=== PATIENT | male | born 1960 | race Caucasian/White ===

== ENCOUNTER 2024-09-28 18:21 | Emergency (ER) | payer MEDICARE, SELFPAY ==
--- NOTE | ~2024-09-28 | XR_ITS ---
EXAMINATION: XR CHEST CLINICAL INFORMATION: Fall. Left-sided rib pain. COMPARISON: None available. TECHNIQUE: Frontal portable view of the chest was obtained. 7:42 PM FINDINGS: No significant abnormality is noted involving the heart, lungs, mediastinum, bony thorax or soft tissues. XR/XR chest 1V IMPRESSION: Unremarkable examination. Electronically signed by: Gabriel Chacon MD 09/28/2024 09:02 PM EDT RP
--- NOTE | ~2024-09-28 | CT_ITS ---
EXAMINATION: CT CHEST WITH CONTRAST CLINICAL INFORMATION: Fall. Left-sided rib pain. COMPARISON: Chest x-ray September 28, 2024 TECHNIQUE: Multidetector volumetric CT imaging of the chest was obtained after the administration of 65 mL of Omnipaque 350 intravenous contrast without immediate adverse reactions. Axial MIP volume rendering provided. Sagittal and coronal reformatted images were obtained. This CT examination was performed using dose optimization techniques as appropriate, variously including the following: *Automated exposure control *Adjustment of mA and/or kV according to patient size (this includes techniques or standardized protocols for targeted exams where dose is matched to indication/reason for exam; i.e. extremities or head) *Use of iterative reconstruction technique DLP: 341 mGy-cm FINDINGS: LUNGS: The lungs are clear with no evidence of inflammation or nodules. MEDIASTINUM: No mediastinal mass or significant lymphadenopathy. Heart size is normal. No pericardial effusion. PLEURA: There is no pleural effusion. No pleural mass or thickening. AXILLA: No lymphadenopathy. UPPER ABDOMEN: Unremarkable OSSEOUS STRUCTURES: Nondisplaced fracture of the anterior left sixth rib. CT/CT chest w IV con IMPRESSION: Nondisplaced fracture of the anterior left sixth rib. Fleischner guidelines were followed. Electronically signed by: Gabriel Chacon MD 09/28/2024 09:30 PM EDT
[2024-09-28 18:28] VITALS: BP 115/73; PULSE 70; O2SAT 90
[2024-09-28 18:33] VITALS: BP 140/47; PULSE 63; RESP 18; TEMP 36.5; O2SAT 98; BMI 33.8
[2024-09-28 19:04] VITALS: BP 140/47; PULSE 57; RESP 20; TEMP 36.4; O2SAT 99
[2024-09-28 19:07] VITALS: BP 132/77
[2024-09-28 19:49] LABS: Hematocrit 44.8 % (42.0-52.0); Hemoglobin 15.2 g/dl (14.0-18.0); Mean Corpuscular HGB Conc 33.9 g/dl (31.0-36.0); Mean Corpuscular Hemoglobin 29.3 pg (27.0-33.0); Mean Corpuscular Volume 86.5 fL (80.0-98.0); PLT CLUMP 1; Red Blood Count 5.18 X10*6/uL (4.60-5.80); Red Cell Distribution Width 13.6 % (11.0-16.0)
[2024-09-28 19:50] LABS: Alanine Aminotransferase 40 U/L (0-40); Albumin Level 4.6 g/dL (3.5-5.0); Alkaline Phosphatase 73 U/L (39-117); Anion Gap 14 (12-20); Aspartate Amino Transferase 40 U/L (5-37); Bilirubin Total 0.9 mg/dL (0.0-1.0); Blood Urea Nitrogen 22 mg/dL (9-16); Calcium 9.8 mg/dL (8.4-10.2); Carbon Dioxide 21 mmol/L (22-29); Chloride 108 mmol/L (96-108); Estimated Glomerular Filt Rate > 60; Glucose Random 101 mg/dL (60-115); Potassium 5.3 mmol/L (3.3-5.1); Sodium 138 mmol/L (135-145); Total Protein 7.6 g/dL (6.5-8.0)
[2024-09-28 20:02] LABS: SLIDE REVIEW MANUAL DIFF
[2024-09-28 20:06] LABS: Band Neutrophils Percent 2 % (3-5); Eosinophils Percent Manual 4 % (0-4); Lymphocytes Percent Manual 19 % (20-40); Monocytes Percent Manual 4 % (2-11); Neutrophils Percent Manual 71 % (45-73)
[2024-09-28 20:07] LABS: Platelet Estimate NORMAL (NORMAL); RBC Morphology NORMAL
[2024-09-28 20:08] LABS: Eosinophils Absolute Manual 0.3 X10*3/uL (0.0-0.4); Lymphocytes Absolute Manual 1.4 X10*3/uL (1.2-4.9); Monocytes Absolute Manual 0.3 X10*3/uL (0.1-1.2); Neutrophils Absolute Manual 5.4 X10*3/uL (2.0-8.3); White Blood Count 7.4 X10*3/uL (4.8-10.8)
[2024-09-28] MEDS: ondansetron HCL 4 MG/2 ML VIAL IVPUSH (20:11)
[2024-09-28] MEDS: HYDROmorphone HCl 2 MG/ML VIAL IVPUSH (20:11)
[2024-09-28 20:15] LABS: Platelet Morphology Comment NORMAL
--- NOTE | 2024-09-28 20:18 | ED.FALL ---
HPI - Fall General Chief Complaint: Fall Stated Complaint: s/p fall, L sided lower rib pain, hx lung collapse Time Seen by Provider: 09/28/24 19:44 Source: patient Mode of arrival: ambulatory Limitations: no limitations History of Present Illness ED Provider: mauricio LOVELL Narrative: Apparently patient was running with his granddaughter on soccer field tripped on a hole and fell hitting had left side of the body to the ground complaining of pain in the left anterior rib patient does have history of seizures but there was no seizure at this time pain increases on palpation and take in deep breaths no significant head injury or loss of consciousness Related Data Previous Rx's ?Medication ?Instructions ?Recorded ibuprofen 600 mg tablet 600 mg PO Q6H PRN fever or pain 09/28/24 #30 tabs oxycodone 5 mg tablet 5 mg PO Q6H PRN pain #20 tabs 09/28/24 Allergies Allergy/AdvReac Type Severity Reaction Status Date / Time No Known Allergies Allergy Verified 09/28/24 18:35 Review of Systems Review of Systems: Yes all other systems are reviewed and are negative FOR[facility]LY [facility], [facility] Social History Social History Smoked in Last 30 Days: No Use of substances other than those prescribed or required for medical reasons: No Advance Directives: No Advance Directives Information Provided: No Do you have a plan to hurt others: No Plan Physical Exam Vital Signs: Vital Signs: Last Vital Signs Temp 98 F 09/28/24 22:34 Pulse 64 09/28/24 22:34 Resp 16 09/28/24 22:34 BP 150/90 H 09/28/24 22:34 Pulse Ox 98 09/28/24 22:34 O2 Del Method Room Air 09/28/24 22:34 BMI result Body Mass Index 33.8 Appearance: Alert. Oriented X3. No acute distress. Eyes: PERRLA, No Nystagmus HEENT: Pharynx normal. Oral Mucosa moist atraumatic normocephalic Neck: Normal inspection. Neck supple. CVS: Normal heart rate and rhythm. Pulses normal. Respiratory: No respiratory distress. Tenderness at left anterior lower rib Equal air entry bilateral, no wheezing/rales/rhonchi Abdomen: Soft and nontender. Bowel sounds are present, no mass palpable, no CVA tenderness Skin: Skin warm and dry. Normal skin color. Normal skin turgor. Extremities: No lower extremity edema. No calf tenderness Neuro: Oriented X 3. No motor deficit. No sensory deficit.No cerebellar signs , cranial nerves II-XII intact Medications Administered Discontinued Medications Generic Name Dose Route Start Last Admin Trade Name Freq PRN Reason Stop Dose Admin Hydromorphone HCl 2 mg 09/28/24 19:59 09/28/24 20:11 Hydromorphone Hcl 2 Mg/Ml Vial IVPUSH 09/28/24 20:00 2 mg ONCE ONE Administration Protocol Iohexol 100 ml 09/28/24 20:35 09/28/24 20:36 Iohexol 350 Mg/Ml 100 Ml Infus..Btl IV 09/28/24 20:36 65 ml ONCE ONE Administration Ondansetron HCl 4 mg 09/28/24 19:59 09/28/24 20:11 Ondansetron Hcl 4 Mg/2 Ml Vial IVPUSH 09/28/24 20:00 4 mg ONCE ONE Administration Medical Decision Making Medical Decision Making [facility] Narrative: Patient with single left 6 rib fractures after fall without significant displacement will give pain medication advised spirometry Lab Data [facility] Lab Attestation statement: I reviewed the patient's lab results. 09/28/24 19:32 09/28/24 19:32 Labs: Lab Results 09/28/24 Range/Units 19:32 WBC 7.4 (4.8-10.8) X10*3/uL RBC 5.18 (4.60-5.80) X10*6/uL Hgb 15.2 (14.0-18.0) g/dl Hct 44.8 (42.0-52.0) % MCV 86.5 (80.0-98.0) fL MCH 29.3 (27.0-33.0) pg MCHC 33.9 (31.0-36.0) g/dl RDW 13.6 (11.0-16.0) % Plt Count TNP MPV 11.0 (9.4-12.4) fL Immature Gran % (Auto) Cancelled Neut % (Auto) Cancelled Lymph % (Auto) Cancelled [place] % (Auto) Cancelled Eos % (Auto) Cancelled Baso % (Auto) Cancelled Lymph # (Auto) Cancelled [place] # (Auto) Cancelled Eos # (Auto) Cancelled Baso # (Auto) Cancelled Abs Immat Gran (auto) Cancelled Absolute Neuts (auto) Cancelled Absolute Nucleated RBC 0.000 (0.0-0.012) X10*3/uL Nucleated RBC % (auto) 0.0 (0.0-0.2) /100WBC Neutrophils % (Manual) 71 (45-73) % Band Neutrophils % 2 L (3-5) % Lymphocytes % (Manual) 19 L (20-40) % Monocytes % (Manual) 4 (2-11) % Eosinophils % (Manual) 4 (0-4) % Abs Neuts (Manual) 5.4 (2.0-8.3) X10*3/uL Lymphocytes # (Manual) 1.4 (1.2-4.9) X10*3/uL Monocytes # (Manual) 0.3 (0.1-1.2) X10*3/uL Eosinophils # (Manual) 0.3 (0.0-0.4) X10*3/uL Platelet Estimate NORMAL (NORMAL) Plt Morphology Comment NORMAL RBC Morphology NORMAL Smear Tech's Comments MANUAL DIFF Sodium 138 (135-145) mmol/L Potassium 5.3 H (3.3-5.1) mmol/L Chloride 108 (96-108) mmol/L Carbon Dioxide 21 L (22-29) mmol/L Anion Gap 14 (12-20) BUN 22 H (9-16) mg/dL Creatinine 1.14 (0.5-1.4) mg/dL Estim Creat Clear Calc 86.0 Estimated GFR > 60 Random Glucose 101 (60-115) mg/dL Calcium 9.8 (8.4-10.2) mg/dL Total Bilirubin 0.9 (0.0-1.0) mg/dL AST 40 H (5-37) U/L ALT 40 (0-40) U/L Alkaline Phosphatase 73 (39-117) U/L Total Protein 7.6 (6.5-8.0) g/dL Albumin 4.6 (3.5-5.0) g/dL Radiology Impression Discussion of test interpretation with radiology: I have reviewed the radiologist's reading. Radiologist Impression: Close Chest CT (Signed) Arose,Gabriel - 09/28/24 Chest X-Ray (Signed) Arose,Gabriel - 09/28/24 Launch?Image [address] [address] [address] Scan Report Signed Patient: Austin Ramirez MR#: [id number] : 1960 Acct:[id number] Age/Sex: 64 / M ADM Date: 09/28/24 Loc: HO.ED Attending Dr: Ordering Physician: Jayden Azul MD Date of Service: 09/28/24 Procedure(s): CT chest w IV con Accession Number(s): [id number] cc: Physician,Unknown ; Jayden Azul MD~ EXAMINATION: CT CHEST WITH CONTRAST CLINICAL INFORMATION: Fall. Left-sided rib pain. COMPARISON: Chest x-ray September 28, 2024 TECHNIQUE: Multidetector volumetric CT imaging of the chest was obtained after the administration of 65 mL of Omnipaque 350 intravenous contrast without immediate adverse reactions. Axial MIP volume rendering provided. Sagittal and coronal reformatted images were obtained. This CT examination was performed using dose optimization techniques as appropriate, variously including the following: *Automated exposure control *Adjustment of mA and/or kV according to patient size (this includes techniques or standardized protocols for targeted exams where dose is matched to indication/reason for exam; i.e. extremities or head) *Use of iterative reconstruction technique DLP: 341 mGy-cm FINDINGS: LUNGS: The lungs are clear with no evidence of inflammation or nodules. MEDIASTINUM: No mediastinal mass or significant lymphadenopathy. Heart size is normal. No pericardial effusion. PLEURA: There is no pleural effusion. No pleural mass or thickening. AXILLA: No lymphadenopathy. UPPER ABDOMEN: Unremarkable OSSEOUS STRUCTURES: Nondisplaced fracture of the anterior left sixth rib. CT/CT chest w IV con IMPRESSION: Nondisplaced fracture of the anterior left sixth rib. Fleischner guidelines were followed. Electronically signed by: Gabriel Chacon MD 09/28/2024 09:30 PM EDT Discharge Plan Discharge Clinical Impression: Closed rib fracture Patient Disposition: Home, Self-Care Instructions: Rib Fracture (ED) Additional Instructions: You have fracture of the left 6th rib in front Take Motrin for pain as needed Oxycodone for severe pain Report to the ER if acute shortness of breath/ worsening of pain Prescriptions: New ibuprofen 600 mg tablet 600 mg PO Q6H PRN (Reason: fever or pain) Qty: 30 0RF oxycodone 5 mg tablet 5 mg PO Q6H PRN (Reason: pain) Qty: 20 0RF Rx Instructions: Partial Fill upon patient request. Interventions: ED Discharge Assessment Last Done: 09/28/24 22:34 Discharge Date/Time: 09/28/24 22:35 Print Language: Ukrainian
[2024-09-28] MEDS: iohexoL 350 MG/ML 100 ML INFUS..BTL IV (20:36)
[2024-09-28 22:34] VITALS: BP 150/90; PULSE 64; RESP 16; TEMP 36.6; O2SAT 98
== END 2024-09-28 22:35 | disposition home or self-care (01) ==
PROVIDERS: Emergency Provider Internal Medicine
DX: S22.32XA Fracture of one rib, left side, initial encounter for closed fracture (principal); W01.0XXA Fall on same level from slipping, tripping and stumbling without subsequent striking against object, initial encounter; Y93.66 Activity, soccer; Y92.322 Soccer field as the place of occurrence of the external cause; Y99.9 Unspecified external cause status
CPT/HCPCS: 36415; 71045; 71260; 80053; 85007; 85025; 85027; 96374; 96375; 99284; J1171; J2405; Q9967